=== PATIENT | male | born 1995 | race Caucasian/White ===

== ENCOUNTER 2018-05-29 11:51 | Emergency (ER) | payer SELFPAY ==
--- NOTE | 2018-05-29 12:23 | ED.PDOC ---
History of Present Illness - General Chief Complaint: General Stated Complaint: Cough, runny nose x 4 days Time Seen by Provider: 05/29/18 12:16 Source: patient Exam Limitations: no limitations - History of Present Illness Initial Comments: Has had a productive cough for four days with fever, SOB, and URI sx's Timing/Duration: constant, getting worse Severity: moderate Improving Factors: nothing Worsening Factors: nothing Associated Symptoms: cough, fever/chills, loss of appetite, malaise, nausea/ vomiting Allergies/Adverse Reactions: Allergies NO KNOWN ALLERGY Allergy (Verified 05/29/18 12:06) Home Medications: Ambulatory Orders Azithromycin Tab [Zithromax Tab] 250 mg PO QDAC #6 tab 05/29/18 Pseudoephedrine-Guaifenesin [Mucinex D] 1 tab PO BID #14 tab 05/29/18 Review of Systems - Review of Systems Constitutional: States: diaphoresis, fever EENTM: States: nose congestion. Denies: throat pain Respiratory: States: cough, short of breath, wheezing Cardiology: Denies: chest pain, edema Gastrointestinal/Abdominal: States: nausea. Denies: abdominal pain, diarrhea, vomiting Genitourinary: States: no symptoms reported Musculoskeletal: States: muscle pain Skin: States: no symptoms reported Neurological: States: weakness. Denies: headache Endocrine: States: no symptoms reported Hematologic/Lymphatic: States: no symptoms reported Past Medical History (General) - Patient Medical History Hx Seizures: No Hx Stroke: No Hx Dementia: No Hx Asthma: No Hx of COPD: No Hx Cardiac Disorders: No Hx Congestive Heart Failure: No Hx Pacemaker: No Hx Hypertension: No Hx Thyroid Disease: No Hx Diabetes: No Hx Gastroesophageal Reflux: No Hx Renal Disease: No Hx Cancer: No Hx of HIV: No Hx Hepatitis C: No Hx MRSA: No Surgical History: no surgical history - Vaccination History Hx Tetanus, Diphtheria Vaccination: Yes Hx Influenza Vaccination: No Hx Pneumococcal Vaccination: No - Social History Hx Tobacco Use: No Hx Chewing Tobacco Use: No Hx Alcohol Use: No Hx Substance Use: No Hx Substance Use Treatment: No Hx Depression: Yes Hx Physical Abuse: No Hx Emotional Abuse: No Hx Suspected Abuse: No Family Medical History - Family History Mother Family History: Unknown Living Status: Still Living Physical Exam - Physical Exam General Appearance: Alert, No apparent distress Eye Exam: bilateral normal Ears, Nose, Throat: normal pharynx Neck: non-tender, supple Respiratory: rhonchi, wheezing Cardiovascular/Chest: normal peripheral pulses, regular rate, rhythm, no edema Gastrointestinal/Abdominal: normal bowel sounds, non tender, soft Extremity: normal range of motion, non-tender, normal inspection Neurologic: alert, normal mood/affect, oriented x 3 Skin Exam: normal color, warm/dry Lymphatic: no adenopathy Progress - EKG/XRAY/CT XRAY: chest - no opacities Departure - Departure Clinical Impression: Bronchitis Disposition: Discharge to Home or Self Care Departure Forms: ED Discharge - Pt. Copy, Patient Portal Self Enrollment Prescriptions: Azithromycin Tab [Zithromax Tab] 250 mg PO QDAC #6 tab Pseudoephedrine-Guaifenesin [Mucinex D] 1 tab PO BID #14 tab Home Medications: Ambulatory Orders Azithromycin Tab [Zithromax Tab] 250 mg PO QDAC #6 tab 05/29/18 Pseudoephedrine-Guaifenesin [Mucinex D] 1 tab PO BID #14 tab 05/29/18
[2018-05-29 13:07] VITALS: TEMP 98.4
--- NOTE | 2018-05-29 13:35 | RAD ---
EXAM DESCRIPTION: Chest,1 View CLINICAL HISTORY: 22 years Male, cough COMPARISON: None. TECHNIQUE: AP portable chest. FINDINGS: Heart size is normal with normal pulmonary vascularity. No consolidating infiltrate. No pulmonary mass or worrisome nodule. No pneumothorax or pleural effusion. Bones are unremarkable. IMPRESSION: No acute process is identified in the chest. Electronically signed by: Daren Soriano MD 05/29/2018 1:34 PM [facility]
[2018-05-29 13:41] VITALS: BP 117/71; O2SAT 86
== END 2018-05-29 13:32 | disposition home or self-care (01) ==
LOC: ER 11:51
DX: J40 Bronchitis, not specified as acute or chronic (principal); F32.9 Major depressive disorder, single episode, unspecified